=== PATIENT | female | born 1980 | race African-American/Black ===

== ENCOUNTER 2023-01-22 12:58 | Outpatient (CLI) | payer OTHER | END 2023-01-22 12:59 | disposition home or self-care (01) | LOC: CSHMAMMO 12:58 | PROVIDERS: ATTEND Nurse Practitioner Women's Health | DX: Z12.31 Encounter for screening mammogram for malignant neoplasm of breast (principal); N63.15 Unspecified lump in the right breast, overlapping quadrants; Z80.3 Family history of malignant neoplasm of breast | CPT/HCPCS: 77063; 77067 ==

== ENCOUNTER 2023-02-21 13:22 | Outpatient (CLI) | payer OTHER | END 2023-02-21 13:23 | disposition home or self-care (01) | LOC: CSHMAMMO 13:22 | PROVIDERS: ATTEND Nurse Practitioner Women's Health | DX: N63.12 Unspecified lump in the right breast, upper inner quadrant (principal) | CPT/HCPCS: G0279 ==

== ENCOUNTER 2023-05-18 23:54 | Emergency (ER) | payer OTHER ==
[2023-05-19] MEDS ORDERED: Ketorolac Tromethamine 30 MG (1 mL) VIAL ONE (00:25)
== END 2023-05-19 00:35 | disposition home or self-care (01) ==
LOC: CSHERS 23:54
DX: M25.512 Pain in left shoulder (principal)
CPT/HCPCS: 93005; 96372; J1885